=== PATIENT | male | born 1985 | race Asian ===

== ENCOUNTER 2019-06-11 01:54 | Emergency (ER) | payer BC, OTHER ==
[~2019-06-11] VITALS: Ht 167.6 cm; Wt 113.4 kg
--- NOTE | 2019-06-11 01:59 | NUR ---
Dr. Fox at bedside for MSE.
[2019-06-11] MEDS ORDERED: LIDOCAINE HCL 2% 20 ML VIAL TP ONE (02:15)
--- NOTE | 2019-06-11 02:20 | NUR ---
Patient discharged to home in stable conditon. Written and verbal after care instructions given. Patient verbalizes understanding of instructions. Pt ambulated out of ER with steady gait, no acute signs of distress, VSS, all belongings taken.
[2019-06-11 02:21] VITALS: BP 111/79
== END 2019-06-11 02:21 | disposition home or self-care (01) ==
LOC: ER 01:58
DX: L02.31 Cutaneous abscess of buttock (principal); F17.200 Nicotine dependence, unspecified, uncomplicated
CPT/HCPCS: A4663

== ENCOUNTER 2019-06-13 00:46 | Emergency (ER) | payer BC, OTHER ==
[~2019-06-13] VITALS: Ht 167.6 cm; Wt 113.4 kg
--- NOTE | 2019-06-13 01:20 | NUR ---
Dr. Ibrahim at bedside for MSE.
[2019-06-13] MEDS ORDERED: SULFAMETH/TRIMETH 800/160 MG TABLET PO ONE (01:30)
[2019-06-13] MEDS ORDERED: SULFAMETH/TRIMETH 800/160 MG TABLET ONE (01:33)
[2019-06-13 01:41] VITALS: BP 137/64
== END 2019-06-13 01:42 | disposition home or self-care (01) ==
LOC: ER 00:53
DX: L02.31 Cutaneous abscess of buttock (principal); F17.200 Nicotine dependence, unspecified, uncomplicated
CPT/HCPCS: A4663

== ENCOUNTER 2020-08-10 05:08 | Emergency (ER) | payer BC, OTHER ==
[~2020-08-10] VITALS: Ht 165.1 cm; Wt 108.9 kg
--- NOTE | 2020-08-10 05:20 | NUR ---
Dr. Lorenzo at bedside for MSE.
[2020-08-10] MEDS ORDERED: KETOROLAC TROMETHAMINE 60 MG INJ IM ONE ×3 (05:30→05:38)
--- NOTE | 2020-08-10 05:46 | NUR ---
Xray at bedside.
[2020-08-10 05:51] LABS: BASOPHILS % (AUTO) 0.3 % (0.0-2.0); EOSINOPHILS # (AUTO) 0.3 K/uL (0.0-0.7); EOSINOPHILS % (AUTO) 3.6 % (0.0-7.0); HEMATOCRIT 40.2 % (36.7-47.1); HEMOGLOBIN 12.7 g/dL (12.5-16.3); MEAN CORPUSCULAR HEMOGLOBIN 22.1 uug (23.8-33.4); MEAN CORPUSCULAR HGB CONC 32 g/dL (32.5-36.3); MEAN CORPUSCULAR VOLUME 69.7 fL (73.0-96.2); MONOCYTES # (AUTO) 0.7 K/uL (2.0-10.0); MONOCYTES % (AUTO) 8.1 % (0.0-11.0); NEUTROPHILS # (AUTO) 4.8 K/uL (1.8-8.9); PLATELET COUNT (AUTO) 228 K/uL (152-348); RED BLOOD CELL COUNT(AUTO) 5.76 MIL/uL (4.06-5.63); WHITE BLOOD COUNT (AUTO) 8.9 K/uL (3.6-10.2)
[2020-08-10 06:00] LABS: CREATININE 0.9 mg/dL (0.6-1.3); POTASSIUM 3.5 mmol/L (3.5-5.1)
[2020-08-10 06:03] LABS: MAGNESIUM 2.2 mg/dL (1.8-2.4)
[2020-08-10 06:13] LABS: BILIRUBIN,DIRECT 0.1 mg/dL (0.0-0.2); BILIRUBIN,TOTAL 0.2 mg/dL (0.2-1.0); TOTAL PROTEIN, SERUM 7.7 g/dL (6.4-8.2)
[2020-08-10 06:23] LABS: EOSINOPHILS % (MANUAL) 1 % (0-8); LYMPHOCYTES % (MANUAL) 32 % (20-40); MONOCYTES % (MANUAL) 7 % (2-10); NEUTROPHILS % (MANUAL) 60 % (42-75)
--- NOTE | 2020-08-10 06:45 | NUR ---
Report given to Krishan schaefer.
[2020-08-10] MEDS ORDERED: ALLO100T PO (07:12)
--- NOTE | 2020-08-10 09:34 | NUR ---
PT WAS D/C'd TO HOME. D/C INSTRUCTIONS FIVEN TO THE PT BY DR EASLEY.
[2020-08-10 09:35] VITALS: BP 136/72
== END 2020-08-10 09:36 | disposition home or self-care (01) ==
LOC: ER 05:10
DX: R07.9 Chest pain, unspecified (principal); R03.0 Elevated blood-pressure reading, without diagnosis of hypertension; Z82.49 Family history of ischemic heart disease and other diseases of the circulatory system; Z72.0 Tobacco use; R00.2 Palpitations; Z86.16 Personal history of COVID-19; E66.9 Obesity, unspecified; Z68.39 Body mass index [BMI] 39.0-39.9, adult; Z87.39 Personal history of other diseases of the musculoskeletal system and connective tissue
CPT/HCPCS: 36415; 71046; 80048; 80076; 83690; 83735; 83880; 84484 ×2; 85007; 85025; 93005 ×3; 96372; 99291; 99406; J1885; 70030-TC; A4663

== ENCOUNTER 2021-10-20 07:02 | Outpatient (CLI) | payer BC, OTHER ==
[~2021-10-20 07:02] MED LIST: ALLO100T PO
[2021-10-20 07:52] LABS: BILIRUBIN,TOTAL 0.2 mg/dL (0.2-1.0); CREATININE 1.1 mg/dL (0.6-1.3); POTASSIUM 4.1 mmol/L (3.5-5.1); TOTAL PROTEIN, SERUM 8.2 g/dL (6.4-8.2)
== END 2021-10-20 23:59 | disposition home or self-care (01) ==
LOC: LAB 07:02
PROVIDERS: ATTEND Family Medicine
DX: R73.9 Hyperglycemia, unspecified (principal)
CPT/HCPCS: 36415

== ENCOUNTER 2022-01-09 06:10 | Emergency (ER) | payer BC, OTHER ==
[~2022-01-09] VITALS: Ht 170.2 cm; Wt 113.4 kg
[2022-01-09] MEDS ORDERED: SULF1TAB48 PO (06:32)
--- NOTE | 2022-01-09 06:41 | NUR ---
Patient discharged to home in stable condition. Written and verbal after care instructions given. Patient verbalizes understanding of instructions. Stressed follow up or return to ER for worsening s/s.
== END 2022-01-09 06:41 | disposition home or self-care (01) ==
LOC: ER 06:14
DX: L03.012 Cellulitis of left finger (principal); Z82.49 Family history of ischemic heart disease and other diseases of the circulatory system
CPT/HCPCS: A4663

== ENCOUNTER 2023-04-09 18:39 | Emergency (ER) | payer BC, OTHER ==
[~2023-04-09] VITALS: Ht 167.6 cm; Wt 120.2 kg
[~2023-04-09 18:39] MED LIST changes: +SULF1TAB48 PO
[2023-04-09] MEDS ORDERED: HYDR-501 PO (19:28)
[2023-04-09] MEDS ORDERED: hydrOXYzine HCL 25 MG TABLET ONE (19:38)
[2023-04-09 19:42] VITALS: BP 126/94; TEMP 98.5; O2SAT 98
[2023-04-09] MEDS ORDERED: hydrOXYzine HCL 25 MG TABLET PO ONE (19:45)
== END 2023-04-09 19:42 | disposition home or self-care (01) ==
LOC: ER 18:40
DX: L27.0 Generalized skin eruption due to drugs and medicaments taken internally (principal); T36.0X5A Adverse effect of penicillins, initial encounter; E16.1 Other hypoglycemia; F17.210 Nicotine dependence, cigarettes, uncomplicated; Z79.899 Other long term (current) drug therapy; Y92.89 Other specified places as the place of occurrence of the external cause
CPT/HCPCS: A4663

== ENCOUNTER 2025-01-27 04:00 | Emergency (ER) | payer OTHER ==
[~2025-01-27] VITALS: Ht 167.6 cm; Wt 111.1 kg
[~2025-01-27 04:00] MED LIST changes: +HYDR-501 PO
[2025-01-27 04:45] VITALS: BP 98/58; TEMP 203.4; O2SAT 98
== END 2025-01-27 04:45 | disposition home or self-care (01) ==
LOC: ER 04:12
DX: S00.33XA Contusion of nose, initial encounter (principal); E11.9 Type 2 diabetes mellitus without complications; F17.290 Nicotine dependence, other tobacco product, uncomplicated; Z79.899 Other long term (current) drug therapy; Z88.7 Allergy status to serum and vaccine; Y04.0XXA Assault by unarmed brawl or fight, initial encounter; Y93.89 Activity, other specified; Y92.89 Other specified places as the place of occurrence of the external cause; Y99.8 Other external cause status
CPT/HCPCS: A4606; A4663